=== PATIENT | female | born 1945 | race Caucasian/White ===

== ENCOUNTER 2025-04-17 12:58 | Emergency (ER) | payer MEDICARE, BC ==
[~2025-04-17] VITALS: Ht 172.7 cm; Wt 91.0 kg
[2025-04-17 13:13] VITALS: O2SAT 100
[2025-04-17] MEDS ORDERED: LIDOCAINE HCL 1% 20ML VIAL INFIL ONE (14:30)
[2025-04-17] MEDS ORDERED: TETANUS, DIPHTHERIA, PERTUSSIS VAC/PF 0.5ML (>10YR OLD) IM ONE (14:30)
[2025-04-17] MEDS ORDERED: BACITRACIN ZINC OINT UDPKT TOP ONE (14:30)
[2025-04-17] MEDS ORDERED: ACET-2708 MT (16:18)
[2025-04-17] MEDS ORDERED: BO1 TP (16:18)
[2025-04-17 16:30] VITALS: BP 141/86; PULSE 81; RESP 18; TEMP 36.7; O2SAT 100
[2025-04-17] MEDS: TETANUS, DIPHTHERIA, PERTUSSIS VAC/PF 0.5ML (>10YR OLD) IM ONE (17:08)
[2025-04-17] MEDS: BACITRACIN ZINC OINT UDPKT TOP ONE (17:08)
== END 2025-04-17 16:34 | disposition home or self-care (01) ==
LOC: ER 13:38
DX: S81.812A Laceration without foreign body, left lower leg, initial encounter (principal); E11.9 Type 2 diabetes mellitus without complications; I10 Essential (primary) hypertension; Z79.899 Other long term (current) drug therapy; X58.XXXA Exposure to other specified factors, initial encounter; Y93.89 Activity, other specified; Y92.89 Other specified places as the place of occurrence of the external cause; Y99.8 Other external cause status
CPT/HCPCS: 12004; 90471; 90715; 99283